=== PATIENT | female | born 1950 | race Two or more races ===

== ENCOUNTER 2023-06-25 13:58 | Inpatient (IN) | payer MEDICARE, OTHER ==
[~2023-06-25] VITALS: Ht 157.5 cm; Wt 56.2 kg
[2023-06-25 14:53] LABS: BASOPHILS % (AUTO) 0.7 % (0.0-2.0); EOSINOPHILS # (AUTO) 0.2 K/uL (0.0-0.7); EOSINOPHILS % (AUTO) 3.7 % (0.0-6.0); HEMATOCRIT 36 % (33-45); LYMPHOCYTES # (AUTO) 1.8 K/uL (0.8-4.8); MEAN CORPUSCULAR HEMOGLOBIN 29 PG (26.0-33.0); MEAN CORPUSCULAR HGB CONC 33 g/dl (31.0-36.0); MEAN CORPUSCULAR VOLUME 88 fL (82-100); MONOCYTES # (AUTO) 0.5 K/uL (0.1-1.30); MONOCYTES % (AUTO) 7.8 % (2.0-12.0); NEUTROPHILS # (AUTO) 3.9 K/uL (1.8-8.9); NEUTROPHILS % (AUTO) 59.8 % (43.0-81.0); PLATELET COUNT (AUTO) 320 K/uL (150-450); RED BLOOD CELL COUNT(AUTO) 4.12 MIL/uL (4.0-5.2); RED CELL DISTRIBUTION WIDTH 14.9 % (11.5-15.0); WHITE BLOOD COUNT (AUTO) 6.5 K/uL (4.3-11.0)
[2023-06-25 15:00] LABS: CALCIUM, SERUM 9.3 mg/dL (8.5-10.1); CARBON DIOXIDE 29 mmol/L (21-32); CHLORIDE 104 mmol/L (98-107); CREATININE 0.8 mg/dL (0.6-1.3); GLUCOSE 87 mg/dL (74-106); POTASSIUM 3.7 mmol/L (3.5-5.1); SODIUM SERUM 138 mmol/L (136-145); UREA NITROGEN, BLOOD 9 mg/dL (7-18)
[2023-06-25 15:06] LABS: ALANINE AMINOTRANSFERASE 21 U/L (12-78); ALCOHOL, BLOOD < 3 mg/dL (0-10); ALKALINE PHOSPHATASE 87 U/L (46-116); ASPARTATE AMINOTRANSFERASE 16 U/L (15-37); BILIRUBIN,DIRECT 0.1 mg/dL (0.0-0.2); BILIRUBIN,TOTAL 0.3 mg/dL (0.2-1.0); SALICYLATE 0.8 mg/dL (2.8-20.0); TOTAL PROTEIN, SERUM 7.4 g/dL (6.4-8.2)
[2023-06-25 15:07] LABS: ACETAMINOPHEN <10 ug/ml (10-30)
[2023-06-25] MEDS ORDERED: SENN-261 PO (15:26)
[2023-06-25] MEDS ORDERED: ACET325T53 PO (15:26)
[2023-06-25] MEDS ORDERED: DOCU100C36 PO (15:26)
[2023-06-25] MEDS ORDERED: CRAN425C2 PO (15:26)
[2023-06-25] MEDS ORDERED: MAGN400O6 PO (15:26)
[2023-06-25] MEDS ORDERED: TRAZ-182 PO (15:26)
[2023-06-25] MEDS ORDERED: MULT-213 PO (15:26)
[2023-06-25 15:37] LABS: APPEARANCE,URINE Clear (CLEAR); BILIRUBIN,URINE Negative (NEGATIVE); BLOOD, URINE Trace-intact Ery/uL (NEGATIVE); COLOR,URINE YELLOW (YELLOW); KETONES,URINE Negative (NEGATIVE); LEUKOCYTE ESTERASE ,URINE Negative (NEGATIVE); NITRITE, URINE Negative (NEGATIVE); PROTEIN,URINE Negative (NEGATIVE); UGLUCOSE Negative (NEGATIVE); UROBILINOGEN,URINE 0.2 EU/dL (0.2)
[2023-06-25 15:55] LABS: AMPHETAMINE, URINE NEGATIVE (NEGATIVE); BARBITURATE, URINE NEGATIVE (NEGATIVE); BENZODIAZEPINE, URINE NEGATIVE (NEGATIVE); CANNABINOID, URINE NEGATIVE (NEGATIVE); COCCAINE, URINE NEGATIVE (NEGATIVE); OPIATE, URINE NEGATIVE (NEGATIVE); PHENCYCLIDINE SCREEN,URINE NEGATIVE (NEGATIVE)
[2023-06-25 16:01] LABS: ADD URINE CULTURE NO; BACTERIA,URINE Few /HPF (None Seen); SQUAMOUS EPITHELIAL CELL,UR Few /HPF (None Seen); WBC,URINE 0-2 /HPF (0-3)
[2023-06-25] MEDS ORDERED: MAGNESIUM HYDROXIDE 30 ML UDC PO PRN ×2 (17:30→21:00)
[2023-06-25] MEDS ORDERED: ACETAMINOPHEN 325 MG TABLET PO PRN (17:30)
[2023-06-25] MEDS ORDERED: MAG HYDROX/AL HYDROX/SIMETH 30 ML UDC PO PRN (21:00)
[2023-06-25] MEDS: BLOOD SUGAR DIAGNOSTIC 1 EACH STRIP IN ONE (21:06)
[2023-06-25] MEDS: SENNOSIDES 8.6 MG TABLET PO SCH (21:06)
[2023-06-25 23:06] VITALS: BP 123/75; TEMP 98; O2SAT 98
[2023-06-26] MEDS: MULTIVIT W/MINERALS 1 TAB TABLET PO SCH (08:14)
[2023-06-26] MEDS: DOCUSATE SODIUM 100 MG CAPSULE PO SCH (08:14)
[2023-06-26] MEDS: OLANZAPINE 10 MG VIAL IM ONE (08:44)
[2023-06-26] MEDS ORDERED: CRANBERRY EXTRACT 425 MG PO SCH (09:00)
[2023-06-26 16:00] VITALS: BP 121/95; TEMP 97.9; O2SAT 97
[2023-06-26 20:00] VITALS: BP_SYST 104; BP_SYST 118; BP_DIAS 66; BP_DIAS 72; TEMP 98.1; TEMP 98.4; O2SAT 97; O2SAT 98
[2023-06-26] MEDS: DIVALPROEX SODIUM 125 MG TABLET.DR PO SCH (20:58)
[2023-06-26] MEDS: ACETAMINOPHEN 325 MG TABLET PO PRN (21:04)
[2023-06-27 08:00] VITALS: BP 121/82; TEMP 98.1; O2SAT 98
[2023-06-27 16:00] VITALS: BP 112/73; TEMP 98.2; O2SAT 98
[2023-06-27] MEDS: MEMANTINE HCL 5 MG TABLET PO SCH (16:50)
[2023-06-27 20:45] VITALS: BP 140/78; TEMP 98.1; O2SAT 96
[2023-06-27] MEDS: ZOLPIDEM TARTRATE 5 MG TABLET PO PRN (20:55)
[2023-06-28 08:00] VITALS: BP 112/64; TEMP 98.1; O2SAT 100
[2023-06-28] MEDS: busPIRone 5 MG TABLET PO SCH (12:20)
[2023-06-28 16:00] VITALS: BP 112/80; TEMP 97.9; O2SAT 98
[2023-06-28 21:03] VITALS: BP 107/67; TEMP 98.1; O2SAT 98
[2023-06-29 08:00] VITALS: BP 109/69; TEMP 98.7; O2SAT 98
[2023-06-29] MEDS: QUETIAPINE FUMARATE 25 MG TABLET PO PRN (12:11)
[2023-06-29 16:00] VITALS: BP 122/79; TEMP 98.7; O2SAT 99
[2023-06-29 21:28] VITALS: BP 102/62; TEMP 98.2; O2SAT 100
[2023-06-30 08:00] VITALS: BP 106/67; TEMP 98.7; O2SAT 98
[2023-06-30 16:00] VITALS: BP 106/65; TEMP 98.1; O2SAT 99
[2023-06-30 16:24] LABS: CALCIUM, SERUM 8.6 mg/dL (8.5-10.1); CREATININE 0.7 mg/dL (0.6-1.3); POTASSIUM 4.6 mmol/L (3.5-5.1)
[2023-06-30 21:01] VITALS: BP 98/70; TEMP 98.2; O2SAT 95
[2023-07-01 08:00] VITALS: BP 100/73; TEMP 98.1; O2SAT 99
[2023-07-01 16:52] VITALS: BP 113/80; TEMP 98.1; O2SAT 97
[2023-07-01 20:00] VITALS: BP 107/67; TEMP 98.1; O2SAT 76
[2023-07-02 07:52] LABS: ALANINE AMINOTRANSFERASE 18 U/L (12-78); ALBUMIN 3.6 g/dL (3.4-5.0); ALKALINE PHOSPHATASE 99 U/L (46-116); ASPARTATE AMINOTRANSFERASE 14 U/L (15-37); BILIRUBIN,TOTAL 0.3 mg/dL (0.2-1.0); CALCIUM, SERUM 8.9 mg/dL (8.5-10.1); CARBON DIOXIDE 28 mmol/L (21-32); CHLORIDE 106 mmol/L (98-107); CREATININE 0.9 mg/dL (0.6-1.3); GLUCOSE 88 mg/dL (74-106); POTASSIUM 4.1 mmol/L (3.5-5.1); SODIUM SERUM 141 mmol/L (136-145); TOTAL PROTEIN, SERUM 7.4 g/dL (6.4-8.2); UREA NITROGEN, BLOOD 14 mg/dL (7-18)
[2023-07-02 08:00] VITALS: BP 133/77; TEMP 98.6; O2SAT 100
[2023-07-02 08:24] LABS: VALPROIC ACID 36 ug/mL (50-100)
[2023-07-02] MEDS: DIVALPROEX SODIUM 250 MG TABLET.DR PO SCH (14:04)
[2023-07-02 16:00] VITALS: BP 121/83; TEMP 98.9; O2SAT 100
[2023-07-02 20:00] VITALS: BP 113/74; TEMP 98.2; O2SAT 97
[2023-07-03 08:00] VITALS: BP 106/66; TEMP 97.6; O2SAT 98
[2023-07-03] MEDS: busPIRone 5 MG TABLET PO SCH (13:01)
[2023-07-03 16:00] VITALS: BP 116/70; TEMP 97.9; O2SAT 100
[2023-07-03 20:00] VITALS: BP 115/71; TEMP 98.1; O2SAT 97
[2023-07-04 08:00] VITALS: BP 117/69; TEMP 98.9; O2SAT 100
[2023-07-04 16:00] VITALS: BP 106/72; TEMP 98; O2SAT 99
[2023-07-04 20:00] VITALS: BP 135/78; TEMP 98.3; O2SAT 99
[2023-07-05 08:00] VITALS: BP 117/78; TEMP 98.1; O2SAT 98
[2023-07-05 16:00] VITALS: BP 108/73; TEMP 98; O2SAT 99
[2023-07-05 21:13] VITALS: BP 109/86; TEMP 98.2; O2SAT 97
[2023-07-06 08:00] VITALS: BP 107/65; TEMP 98.1; O2SAT 97
[2023-07-06 16:00] VITALS: BP 130/75; TEMP 97.8; O2SAT 94
[2023-07-06] MEDS: MEMANTINE HCL 5 MG TABLET PO SCH (16:58)
[2023-07-06 20:51] VITALS: BP 120/55; TEMP 98.2; O2SAT 99
[2023-07-07 08:00] VITALS: BP 112/73; TEMP 97.9; O2SAT 98
[2023-07-07 16:00] VITALS: BP 113/74; TEMP 98.7; O2SAT 100
[2023-07-07 20:38] VITALS: BP 114/55; TEMP 98.6; O2SAT 99
[2023-07-08 08:00] VITALS: BP 115/77; TEMP 97.7; O2SAT 100
== END 2023-07-08 13:30 | DRG 885 ==
LOC: ER 14:27 → GPS 19:56
PROVIDERS: ADMIT Psychiatry & Neurology Psychiatry; ATTEND Nurse Practitioner Family
DX: F39 Unspecified mood [affective] disorder (principal); F02.82 Dementia in other diseases classified elsewhere, unspecified severity, with psychotic disturbance; F02.83 Dementia in other diseases classified elsewhere, unspecified severity, with mood disturbance; F02.84 Dementia in other diseases classified elsewhere, unspecified severity, with anxiety; R45.851 Suicidal ideations; F02.818 Dementia in other diseases classified elsewhere, unspecified severity, with other behavioral disturbance; F29 Unspecified psychosis not due to a substance or known physiological condition; G30.9 Alzheimer's disease, unspecified; F32.A Depression, unspecified; M19.90 Unspecified osteoarthritis, unspecified site; E03.9 Hypothyroidism, unspecified; Z79.899 Other long term (current) drug therapy; Z91.81 History of falling; R13.10 Dysphagia, unspecified; R26.9 Unspecified abnormalities of gait and mobility; Z87.81 Personal history of (healed) traumatic fracture; Z88.7 Allergy status to serum and vaccine; Z73.6 Limitation of activities due to disability; R53.1 Weakness; R27.8 Other lack of coordination
CPT/HCPCS: 36415; 80048-TC; 80053-TC; 80076-TC; 80164-TC; 81001; 85025-TC; 87081-TC; 97112-TC; 97116-TC; 97530-TC; G0480; J3490

== ENCOUNTER 2023-07-24 14:28 | Inpatient (IN) | payer MEDICARE, OTHER ==
[~2023-07-24] VITALS: Ht 167.6 cm; Wt 59.0 kg
[~2023-07-24 14:28] MED LIST: ACET325T53 PO; CRAN425C2 PO; DOCU100C36 PO; MAGN400O6 PO; MULT-213 PO; SENN-261 PO
[2023-07-24] MEDS ORDERED: MAG30ORA PO (14:59)
[2023-07-24] MEDS ORDERED: ACET-73 PO (14:59)
[2023-07-24] MEDS ORDERED: MEMA5TAB PO (14:59)
[2023-07-24] MEDS ORDERED: BUSP5TAB3 PO (15:00)
[2023-07-24] MEDS ORDERED: DIVA-76 PO (15:00)
[2023-07-24 15:42] LABS: BASOPHILS # (AUTO) 0.1 K/uL (0.0-0.2); BASOPHILS % (AUTO) 0.5 % (0.0-2.0); EOSINOPHILS # (AUTO) 0.2 K/uL (0.0-0.7); EOSINOPHILS % (AUTO) 1.6 % (0.0-6.0); HEMATOCRIT 34 % (33-45); HEMOGLOBIN 12.1 g/dL (11.5-14.8); LYMPHOCYTES # (AUTO) 1.7 K/uL (0.8-4.8); LYMPHOCYTES % (AUTO) 18.4 % (20.0-44.0); MEAN CORPUSCULAR HEMOGLOBIN 31 PG (26.0-33.0); MEAN CORPUSCULAR HGB CONC 35 g/dl (31.0-36.0); MEAN CORPUSCULAR VOLUME 88 fL (82-100); MONOCYTES # (AUTO) 0.7 K/uL (0.1-1.30); MONOCYTES % (AUTO) 7.6 % (2.0-12.0); NEUTROPHILS # (AUTO) 6.7 K/uL (1.8-8.9); NEUTROPHILS % (AUTO) 71.9 % (43.0-81.0); PLATELET COUNT (AUTO) 356 K/uL (150-450); RED CELL DISTRIBUTION WIDTH 14.3 % (11.5-15.0); WHITE BLOOD COUNT (AUTO) 9.3 K/uL (4.3-11.0)
[2023-07-24 15:56] LABS: CALCIUM, SERUM 9.1 mg/dL (8.5-10.1); CARBON DIOXIDE 27 mmol/L (21-32); CHLORIDE 98 mmol/L (98-107); CREATININE 0.8 mg/dL (0.6-1.3); GLUCOSE 81 mg/dL (74-106); POTASSIUM 3.7 mmol/L (3.5-5.1); SODIUM SERUM 134 mmol/L (136-145); UREA NITROGEN, BLOOD 9 mg/dL (7-18)
[2023-07-24 16:01] LABS: ALANINE AMINOTRANSFERASE 10 U/L (12-78); ALBUMIN 3.3 g/dL (3.4-5.0); ALKALINE PHOSPHATASE 97 U/L (46-116); ASPARTATE AMINOTRANSFERASE 12 U/L (15-37); BILIRUBIN,DIRECT 0.1 mg/dL (0.0-0.2); BILIRUBIN,TOTAL 0.3 mg/dL (0.2-1.0); TOTAL PROTEIN, SERUM 7.2 g/dL (6.4-8.2)
[2023-07-24 16:09] LABS: ACETAMINOPHEN 0 ug/ml (10-30); ALCOHOL, BLOOD < 3 mg/dL (0-10); SALICYLATE 1.1 mg/dL (2.8-20.0)
[2023-07-24 16:26] LABS: APPEARANCE,URINE SLIGHTLY CLOUDY (CLEAR); BILIRUBIN,URINE 1+ (NEGATIVE); BLOOD, URINE 1+ Ery/uL (NEGATIVE); COLOR,URINE YELLOW (YELLOW); KETONES,URINE 1+ mg/dL (NEGATIVE); LEUKOCYTE ESTERASE ,URINE 1+ (NEGATIVE); NITRITE, URINE POSITIVE (NEGATIVE); PROTEIN,URINE NEGATIVE (NEGATIVE); UGLUCOSE NEGATIVE (NEGATIVE)
[2023-07-24 16:47] LABS: ADD URINE CULTURE YES; BACTERIA,URINE 1+ /HPF (None Seen); MUCUS,URINE Many /LPF (None Seen)
[2023-07-24 17:01] LABS: AMPHETAMINE, URINE NEGATIVE (NEGATIVE); BARBITURATE, URINE NEGATIVE (NEGATIVE); BENZODIAZEPINE, URINE NEGATIVE (NEGATIVE); CANNABINOID, URINE NEGATIVE (NEGATIVE); COCCAINE, URINE NEGATIVE (NEGATIVE); OPIATE, URINE NEGATIVE (NEGATIVE); PHENCYCLIDINE SCREEN,URINE NEGATIVE (NEGATIVE)
[2023-07-24] MEDS ORDERED: CEFTRIAXONE 1GM BAG (ER ONLY) 50 ML IV ONE (17:22)
[2023-07-24] MEDS: CEFTRIAXONE 1GM BAG (ER ONLY) 1 GM/50 ML PIGGYBACK IV ONE (17:37)
[2023-07-24] MEDS ORDERED: MAG HYDROX/AL HYDROX/SIMETH 30 ML UDC PO PRN ×2 (21:00→22:30)
[2023-07-24] MEDS ORDERED: MAGNESIUM HYDROXIDE 30 ML UDC PO PRN ×2 (21:00→22:30)
[2023-07-24] MEDS ORDERED: ACETAMINOPHEN 325 MG TABLET PO PRN ×2 (21:00→22:30)
[2023-07-24] MEDS ORDERED: QUETIAPINE FUMARATE 25 MG TABLET PO PRN (22:30)
[2023-07-24] MEDS: BLOOD SUGAR DIAGNOSTIC 1 EACH STRIP IN ONE (22:46)
[2023-07-24] MEDS: SENNOSIDES 8.6 MG TABLET PO SCH (22:50)
[2023-07-25 00:01] VITALS: BP 116/67; TEMP 98; O2SAT 99
[2023-07-25] MEDS: ZOLPIDEM TARTRATE 5 MG TABLET PO PRN (02:58)
[2023-07-25 08:00] VITALS: BP 104/64; TEMP 98.5; O2SAT 100
[2023-07-25] MEDS: CEPHALEXIN MONOHYDRATE 500 MG CAPSULE PO SCH (08:11)
[2023-07-25] MEDS: MULTIVIT W/MINERALS 1 TAB TABLET PO SCH (08:11)
[2023-07-25] MEDS: DOCUSATE SODIUM 100 MG CAPSULE PO SCH (08:11)
[2023-07-25] MEDS: DIVALPROEX SODIUM 125 MG TABLET.DR PO SCH (12:28)
[2023-07-25 16:00] VITALS: BP 116/73; TEMP 97.6; O2SAT 98
[2023-07-25 20:37] VITALS: BP 126/70; TEMP 97.7; O2SAT 98
[2023-07-25] MEDS: TRAZODONE 50 MG TABLET PO SCH (21:22)
[2023-07-26 07:55] LABS: BASOPHILS # (AUTO) 0.1 K/uL (0.0-0.2); BASOPHILS % (AUTO) 0.8 % (0.0-2.0); EOSINOPHILS # (AUTO) 0.2 K/uL (0.0-0.7); EOSINOPHILS % (AUTO) 3.5 % (0.0-6.0); HEMATOCRIT 35 % (33-45); LYMPHOCYTES # (AUTO) 1.2 K/uL (0.8-4.8); MEAN CORPUSCULAR HEMOGLOBIN 30 PG (26.0-33.0); MEAN CORPUSCULAR HGB CONC 34 g/dl (31.0-36.0); MEAN CORPUSCULAR VOLUME 88 fL (82-100); MONOCYTES # (AUTO) 0.5 K/uL (0.1-1.30); MONOCYTES % (AUTO) 8.1 % (2.0-12.0); NEUTROPHILS # (AUTO) 4.5 K/uL (1.8-8.9); NEUTROPHILS % (AUTO) 68.6 % (43.0-81.0); PLATELET COUNT (AUTO) 351 K/uL (150-450); RED BLOOD CELL COUNT(AUTO) 3.96 MIL/uL (4.0-5.2); RED CELL DISTRIBUTION WIDTH 14.1 % (11.5-15.0); WHITE BLOOD COUNT (AUTO) 6.6 K/uL (4.3-11.0)
[2023-07-26 07:58] LABS: CALCIUM, SERUM 9.5 mg/dL (8.5-10.1); CREATININE 0.7 mg/dL (0.6-1.3)
[2023-07-26 08:00] VITALS: BP 134/70; TEMP 98; O2SAT 97
[2023-07-26 16:00] VITALS: BP 96/70; TEMP 97.9; O2SAT 99
[2023-07-26 20:21] VITALS: BP 113/75; TEMP 97.9; O2SAT 97
[2023-07-27 08:00] VITALS: BP 101/64; TEMP 97.8; O2SAT 96
[2023-07-27 16:03] VITALS: BP 90/54; TEMP 97.8; O2SAT 99
[2023-07-27 20:39] VITALS: BP_SYST 103; TEMP 97.7; O2SAT 98
[2023-07-28 08:00] VITALS: BP 98/56; TEMP 98.1; O2SAT 100
[2023-07-28 13:08] LABS: CALCIUM, SERUM 9.5 mg/dL (8.5-10.1); CARBON DIOXIDE 30 mmol/L (21-32); CHLORIDE 95 mmol/L (98-107); CREATININE 0.7 mg/dL (0.6-1.3); GLUCOSE 84 mg/dL (74-106); SODIUM SERUM 131 mmol/L (136-145); UREA NITROGEN, BLOOD 7 mg/dL (7-18)
[2023-07-28 16:00] VITALS: BP 100/65; TEMP 97.9; O2SAT 98
[2023-07-28 20:00] VITALS: BP 103/69; TEMP 97.5; O2SAT 96
[2023-07-28 20:55] VITALS: BP 103/69; TEMP 97.5; O2SAT 96
[2023-07-29 08:00] VITALS: BP 95/71; TEMP 98; O2SAT 98
[2023-07-29 10:18] LABS: CALCIUM, SERUM 8.8 mg/dL (8.5-10.1); CARBON DIOXIDE 29 mmol/L (21-32); CHLORIDE 96 mmol/L (98-107); CREATININE 0.8 mg/dL (0.6-1.3); GLUCOSE 98 mg/dL (74-106); POTASSIUM 3.3 mmol/L (3.5-5.1); SODIUM SERUM 131 mmol/L (136-145); UREA NITROGEN, BLOOD 6 mg/dL (7-18)
[2023-07-29 16:00] VITALS: BP 119/71; TEMP 97.9; O2SAT 99
[2023-07-29] MEDS: OLANZAPINE 2.5 MG TABLET PO SCH (16:23)
[2023-07-29 20:00] VITALS: BP 124/70; TEMP 98.1; O2SAT 97
[2023-07-30 08:00] VITALS: BP 103/56; TEMP 98.1; O2SAT 100
[2023-07-30 16:00] VITALS: BP 104/61; TEMP 97.3; O2SAT 100
[2023-07-30 20:00] VITALS: BP 109/68; TEMP 98.1; O2SAT 97
[2023-07-31 07:00] LABS: BASOPHILS # (AUTO) 0.1 K/uL (0.0-0.2); BASOPHILS % (AUTO) 0.8 % (0.0-2.0); EOSINOPHILS # (AUTO) 0.3 K/uL (0.0-0.7); EOSINOPHILS % (AUTO) 4.8 % (0.0-6.0); HEMATOCRIT 37 % (33-45); HEMOGLOBIN 12.7 g/dL (11.5-14.8); LYMPHOCYTES # (AUTO) 2.1 K/uL (0.8-4.8); LYMPHOCYTES % (AUTO) 28.9 % (20.0-44.0); MEAN CORPUSCULAR HEMOGLOBIN 31 PG (26.0-33.0); MEAN CORPUSCULAR HGB CONC 35 g/dl (31.0-36.0); MEAN CORPUSCULAR VOLUME 88 fL (82-100); MONOCYTES # (AUTO) 0.5 K/uL (0.1-1.30); MONOCYTES % (AUTO) 6.7 % (2.0-12.0); NEUTROPHILS # (AUTO) 4.3 K/uL (1.8-8.9); NEUTROPHILS % (AUTO) 58.8 % (43.0-81.0); PLATELET COUNT (AUTO) 371 K/uL (150-450); RED BLOOD CELL COUNT(AUTO) 4.16 MIL/uL (4.0-5.2); RED CELL DISTRIBUTION WIDTH 14.2 % (11.5-15.0); WHITE BLOOD COUNT (AUTO) 7.2 K/uL (4.3-11.0)
[2023-07-31 07:08] LABS: CALCIUM, SERUM 9.2 mg/dL (8.5-10.1); CREATININE 0.8 mg/dL (0.6-1.3); MAGNESIUM 2.4 mg/dL (1.8-2.4); POTASSIUM 4.1 mmol/L (3.5-5.1)
[2023-07-31 08:00] VITALS: BP 92/56; TEMP 97.6; O2SAT 98
[2023-07-31 16:00] VITALS: BP 93/65; TEMP 97.9; O2SAT 98
[2023-07-31] MEDS: OLANZAPINE 2.5 MG TABLET PO SCH (17:00)
[2023-07-31 20:00] VITALS: BP 129/68; TEMP 98.2; O2SAT 97
[2023-08-01 08:00] VITALS: BP 97/57; TEMP 97.7; O2SAT 100
[2023-08-01 16:00] VITALS: BP 101/64; TEMP 98.6; O2SAT 100
[2023-08-01 20:14] VITALS: BP 97/56; TEMP 97.5; O2SAT 98
[2023-08-02] MEDS: LEVOTHYROXINE SODIUM 100 MCG TABLET PO SCH (07:22)
[2023-08-02 08:00] VITALS: BP 102/66; TEMP 97.9; O2SAT 100
[2023-08-02 16:00] VITALS: BP 121/75; TEMP 97.7; O2SAT 98
[2023-08-02 20:36] VITALS: BP 106/58; TEMP 97.9; O2SAT 96
[2023-08-03 07:31] LABS: CALCIUM, SERUM 9.7 mg/dL (8.5-10.1); CREATININE 0.8 mg/dL (0.6-1.3); POTASSIUM 3.9 mmol/L (3.5-5.1)
[2023-08-03 08:00] VITALS: BP 101/64; TEMP 97.8; O2SAT 100
[2023-08-03 16:03] VITALS: BP 93/63; TEMP 97.9; O2SAT 100
[2023-08-03] MEDS: DIVALPROEX SODIUM 125 MG TABLET.DR PO SCH (16:35)
[2023-08-03 20:12] VITALS: BP 101/52; TEMP 97.4; O2SAT 100
[2023-08-04 08:00] VITALS: BP 103/59; TEMP 98.7; O2SAT 98
[2023-08-04 16:00] VITALS: BP 100/53; TEMP 98.1; O2SAT 97
[2023-08-04 20:10] VITALS: BP 99/60; TEMP 98.2; O2SAT 97
[2023-08-05 08:00] VITALS: BP 104/66; TEMP 98.1; O2SAT 96
== END 2023-08-05 13:40 | DRG 885 ==
LOC: ER 14:30 → GPS 21:19
PROVIDERS: ADMIT Psychiatry & Neurology Psychiatry; ATTEND Nurse Practitioner Acute Care
DX: F39 Unspecified mood [affective] disorder (principal); F01.53 Vascular dementia, unspecified severity, with mood disturbance; G93.41 Metabolic encephalopathy; F01.54 Vascular dementia, unspecified severity, with anxiety; F02.82 Dementia in other diseases classified elsewhere, unspecified severity, with psychotic disturbance; F01.52 Vascular dementia, unspecified severity, with psychotic disturbance; F02.84 Dementia in other diseases classified elsewhere, unspecified severity, with anxiety; F02.83 Dementia in other diseases classified elsewhere, unspecified severity, with mood disturbance; N39.0 Urinary tract infection, site not specified; E87.1 Hypo-osmolality and hyponatremia; R45.851 Suicidal ideations; F29 Unspecified psychosis not due to a substance or known physiological condition; G30.9 Alzheimer's disease, unspecified; Z66 Do not resuscitate; Z20.822 Contact with and (suspected) exposure to COVID-19; B96.89 Other specified bacterial agents as the cause of diseases classified elsewhere; R13.10 Dysphagia, unspecified; R26.2 Difficulty in walking, not elsewhere classified; M19.90 Unspecified osteoarthritis, unspecified site; Z87.81 Personal history of (healed) traumatic fracture; F32.9 Major depressive disorder, single episode, unspecified; E87.6 Hypokalemia; T42.6X5A Adverse effect of other antiepileptic and sedative-hypnotic drugs, initial encounter; Y92.129 Unspecified place in nursing home as the place of occurrence of the external cause; E03.9 Hypothyroidism, unspecified; R62.7 Adult failure to thrive; Z88.7 Allergy status to serum and vaccine; Z79.899 Other long term (current) drug therapy
CPT/HCPCS: 36415; 80048-TC; 80061-TC; 80076-TC; 81001; 82962-TC; 83735-TC; 84439-TC; 84443-TC; 85025-TC; 87081-TC; 87086-TC; 97112-TC; 97116-TC; 97530-TC; G0480; J0696

== ENCOUNTER 2023-08-24 12:37 | Inpatient (IN) | payer MEDICARE, OTHER ==
[~2023-08-24] VITALS: Ht 167.6 cm; Wt 60.8 kg
[~2023-08-24 12:37] MED LIST changes: +ACET-73 PO; +BUSP5TAB3 PO; -CRAN425C2 PO; +DIVA-76 PO; +MAG30ORA PO; +MEMA5TAB PO
[2023-08-24 13:22] LABS: CALCIUM, SERUM 9.4 mg/dL (8.5-10.1); CARBON DIOXIDE 29 mmol/L (21-32); CHLORIDE 99 mmol/L (98-107); CREATININE 0.7 mg/dL (0.6-1.3); GLUCOSE 82 mg/dL (74-106); POTASSIUM 4.2 mmol/L (3.5-5.1); SODIUM SERUM 137 mmol/L (136-145); UREA NITROGEN, BLOOD 11 mg/dL (7-18)
[2023-08-24 13:24] LABS: BASOPHILS # (AUTO) 0.1 K/uL (0.0-0.2); BASOPHILS % (AUTO) 0.9 % (0.0-2.0); EOSINOPHILS # (AUTO) 0.4 K/uL (0.0-0.7); EOSINOPHILS % (AUTO) 4.9 % (0.0-6.0); HEMATOCRIT 35 % (33-45); HEMOGLOBIN 11.5 g/dL (11.5-14.8); LYMPHOCYTES # (AUTO) 1.7 K/uL (0.8-4.8); LYMPHOCYTES % (AUTO) 22.3 % (20.0-44.0); MEAN CORPUSCULAR HEMOGLOBIN 30 PG (26.0-33.0); MEAN CORPUSCULAR HGB CONC 34 g/dl (31.0-36.0); MEAN CORPUSCULAR VOLUME 89 fL (82-100); MONOCYTES # (AUTO) 0.6 K/uL (0.1-1.30); NEUTROPHILS % (AUTO) 63.9 % (43.0-81.0); PLATELET COUNT (AUTO) 288 K/uL (150-450); RED BLOOD CELL COUNT(AUTO) 3.87 MIL/uL (4.0-5.2); RED CELL DISTRIBUTION WIDTH 14.4 % (11.5-15.0); WHITE BLOOD COUNT (AUTO) 7.8 K/uL (4.3-11.0)
[2023-08-24 13:27] LABS: ALANINE AMINOTRANSFERASE 12 U/L (12-78); ALBUMIN 3.2 g/dL (3.4-5.0); ALCOHOL, BLOOD < 3 mg/dL (0-10); ALKALINE PHOSPHATASE 91 U/L (46-116); ASPARTATE AMINOTRANSFERASE < 5 U/L (15-37); BILIRUBIN,DIRECT 0.1 mg/dL (0.0-0.2); BILIRUBIN,TOTAL 0.3 mg/dL (0.2-1.0)
[2023-08-24 13:29] LABS: APPEARANCE,URINE Clear (CLEAR); BILIRUBIN,URINE Negative (NEGATIVE); BLOOD, URINE Negative Ery/uL (NEGATIVE); COLOR,URINE YELLOW (YELLOW); KETONES,URINE Trace mg/dL (NEGATIVE); LEUKOCYTE ESTERASE ,URINE Small (NEGATIVE); NITRITE, URINE Negative (NEGATIVE); PROTEIN,URINE Negative (NEGATIVE); UGLUCOSE Negative (NEGATIVE); UROBILINOGEN,URINE 0.2 EU/dL (0.2)
[2023-08-24 13:29] LABS: ACETAMINOPHEN <10 ug/ml (10-30)
[2023-08-24] MEDS ORDERED: NA P133E RC (13:32)
[2023-08-24] MEDS ORDERED: LEVO100T PO (13:32)
[2023-08-24] MEDS ORDERED: OLAN2.5T3 PO (13:32)
[2023-08-24] MEDS ORDERED: TRAZ-182 PO (13:32)
[2023-08-24 13:40] LABS: AMPHETAMINE, URINE NEGATIVE (NEGATIVE); BARBITURATE, URINE NEGATIVE (NEGATIVE); BENZODIAZEPINE, URINE NEGATIVE (NEGATIVE); CANNABINOID, URINE NEGATIVE (NEGATIVE); COCCAINE, URINE NEGATIVE (NEGATIVE); OPIATE, URINE NEGATIVE (NEGATIVE); PHENCYCLIDINE SCREEN,URINE NEGATIVE (NEGATIVE)
[2023-08-24 13:44] LABS: ADD URINE CULTURE YES; BACTERIA,URINE Few /HPF (None Seen); SQUAMOUS EPITHELIAL CELL,UR Few /HPF (None Seen); WBC,URINE 0-2 /HPF (0-3)
[2023-08-24] MEDS ORDERED: ZOLPIDEM TARTRATE 5 MG TABLET PO PRN (18:00)
[2023-08-24] MEDS ORDERED: QUETIAPINE FUMARATE 25 MG TABLET PO PRN (18:00)
[2023-08-24] MEDS ORDERED: MAG HYDROX/AL HYDROX/SIMETH 30 ML UDC PO PRN (18:00)
[2023-08-24] MEDS ORDERED: MAGNESIUM HYDROXIDE 30 ML UDC PO PRN (18:00)
[2023-08-24] MEDS: BLOOD SUGAR DIAGNOSTIC 1 EACH STRIP IN ONE (18:15)
[2023-08-24 18:31] VITALS: BP 121/69; TEMP 98.7; O2SAT 99
[2023-08-24 20:10] VITALS: BP 107/70; TEMP 98.3; O2SAT 96
[2023-08-25 08:00] VITALS: BP 110/70; TEMP 97.9; O2SAT 98
[2023-08-25 11:37] LABS: ALBUMIN 3.4 g/dL (3.4-5.0); BILIRUBIN,TOTAL 0.3 mg/dL (0.2-1.0); CALCIUM, SERUM 9.8 mg/dL (8.5-10.1); CREATININE 0.9 mg/dL (0.6-1.3); POTASSIUM 4.5 mmol/L (3.5-5.1); TOTAL PROTEIN, SERUM 7.4 g/dL (6.4-8.2)
[2023-08-25 11:47] LABS: THYROID STIMULATING HORMONE 2.94 uIU/mL (0.358-3.74)
[2023-08-25 16:00] VITALS: BP 107/60; TEMP 97.7; O2SAT 100
[2023-08-25 18:33] LABS: CREATININE 0.9 mg/dL (0.6-1.3)
[2023-08-25 20:00] VITALS: BP 97/52; TEMP 97.9; O2SAT 98
[2023-08-25] MEDS: LITHIUM CARBONATE 150 MG CAPSULE PO SCH (20:55)
[2023-08-26 08:00] VITALS: BP 108/66; TEMP 98.6; O2SAT 99
[2023-08-26] MEDS: ESCITALOPRAM OXALATE (10 MG) 10 MG TABLET PO SCH (08:26)
[2023-08-26 16:00] VITALS: BP_SYST 112; BP_SYST 151; BP_DIAS 61; BP_DIAS 84; TEMP 97.6; TEMP 98; O2SAT 97; O2SAT 99
[2023-08-26 20:00] VITALS: BP 109/78; TEMP 98.2; O2SAT 98
[2023-08-26] MEDS: OLANZAPINE 2.5 MG TABLET PO SCH (20:57)
[2023-08-26] MEDS: SENNOSIDES 8.6 MG TABLET PO SCH (21:03)
[2023-08-27 08:00] VITALS: BP 102/72; TEMP 97.8; O2SAT 95
[2023-08-27] MEDS: DOCUSATE SODIUM 100 MG CAPSULE PO SCH (08:33)
[2023-08-27] MEDS: MULTIVIT W/MINERALS 1 TAB TABLET PO SCH (08:33)
[2023-08-27] MEDS: LEVOTHYROXINE SODIUM 100 MCG TABLET PO SCH (08:33)
[2023-08-27] MEDS: HYDROCORTISONE 1% CREAM 28.35 GM TUBE TP SCH (12:57)
[2023-08-27 16:00] VITALS: BP 103/66; TEMP 97.9; O2SAT 98
[2023-08-27 20:00] VITALS: BP 115/69; TEMP 97.6; O2SAT 97
[2023-08-28 08:00] VITALS: BP 114/69; TEMP 97.7; O2SAT 97
[2023-08-28 16:00] VITALS: BP 114/69; TEMP 97.9; O2SAT 98
[2023-08-28 21:12] VITALS: BP 136/69; TEMP 97.9; O2SAT 98
[2023-08-28] MEDS: OLANZAPINE 2.5 MG TABLET PO SCH (21:13)
[2023-08-29 08:00] VITALS: BP 105/67; TEMP 97.7; O2SAT 97
[2023-08-29] MEDS: OLANZAPINE 5 MG TABLET PO SCH (09:02)
[2023-08-29 16:00] VITALS: BP 100/64; TEMP 98.4; O2SAT 100
[2023-08-29] MEDS: LITHIUM CARBONATE 150 MG CAPSULE PO SCH (21:16)
[2023-08-30 08:00] VITALS: BP 109/51; TEMP 97.9; O2SAT 99
[2023-08-30] MEDS: LITHIUM CARBONATE 150 MG CAPSULE PO SCH (08:59)
[2023-08-30 16:00] VITALS: BP 108/62; TEMP 98.1; O2SAT 100
[2023-08-30 20:32] VITALS: BP 102/57; TEMP 98.6; O2SAT 98
[2023-08-31 08:00] VITALS: BP 99/83; TEMP 97.8; O2SAT 99
[2023-08-31 16:05] VITALS: BP 105/83; TEMP 98.3; O2SAT 98
[2023-08-31 20:27] VITALS: BP 111/63; TEMP 98; O2SAT 97
[2023-09-01 08:00] VITALS: BP 128/74; TEMP 98.7; O2SAT 98
[2023-09-01] MEDS: ESCITALOPRAM OXALATE (10 MG) 10 MG TABLET PO SCH (08:14)
[2023-09-01 16:00] VITALS: BP 118/73; TEMP 98.6; O2SAT 99
[2023-09-01] MEDS: ACETAMINOPHEN 325 MG TABLET PO PRN (19:48)
[2023-09-01 20:28] VITALS: BP 101/77; TEMP 98.3; O2SAT 100
[2023-09-02 08:00] VITALS: BP 120/67; TEMP 98; O2SAT 98
[2023-09-02 16:00] VITALS: BP 97/66; TEMP 98; O2SAT 100
[2023-09-02 20:00] VITALS: BP 115/67; TEMP 98.1; O2SAT 97
[2023-09-03 09:12] VITALS: BP 106/58; TEMP 97.7; O2SAT 98
[2023-09-03 16:00] VITALS: BP 115/75; TEMP 97.9; O2SAT 95
[2023-09-03 20:00] VITALS: BP 110/69; TEMP 98.1; O2SAT 98
[2023-09-04 08:00] VITALS: BP 105/64; TEMP 97.7; O2SAT 98
[2023-09-04] MEDS: OLANZAPINE 5 MG TABLET PO SCH (08:26)
[2023-09-04 16:00] VITALS: BP 101/60; TEMP 98; O2SAT 98
[2023-09-04 20:00] VITALS: BP 108/67; TEMP 97.9; O2SAT 98
[2023-09-05 08:00] VITALS: BP 108/66; TEMP 98; O2SAT 99
[2023-09-05 16:12] VITALS: BP 92/58; TEMP 97.9; O2SAT 99
[2023-09-05 21:30] VITALS: BP 102/68; TEMP 98.2; O2SAT 99
[2023-09-06 08:00] VITALS: BP 117/60; TEMP 98.1; O2SAT 97
[2023-09-06 16:00] VITALS: BP 101/71; TEMP 98.6; O2SAT 98
[2023-09-06] MEDS: MEMANTINE HCL 5 MG TABLET PO SCH (17:02)
[2023-09-06 21:03] VITALS: BP 106/52; TEMP 98.4; O2SAT 96
[2023-09-07 08:00] VITALS: BP 107/70; TEMP 98.1; O2SAT 96
[2023-09-07 16:00] VITALS: BP 100/64; TEMP 98.4; O2SAT 100
[2023-09-07 20:50] VITALS: BP 103/60; TEMP 97.9; O2SAT 98
[2023-09-07] MEDS: DONEPEZIL 5 MG TABLET PO SCH (21:24)
[2023-09-08 08:00] VITALS: BP 100/61; TEMP 97.7; O2SAT 98
[2023-09-08 16:00] VITALS: BP 100/56; TEMP 98.1; O2SAT 98
[2023-09-08 20:45] VITALS: BP 107/71; TEMP 98.3; O2SAT 97
[2023-09-09 08:00] VITALS: BP 96/59; TEMP 97.7; O2SAT 98
[2023-09-09 16:00] VITALS: BP 100/60; TEMP 98; O2SAT 96
[2023-09-09 20:00] VITALS: BP 93/47; TEMP 98.1; O2SAT 98
[2023-09-10 08:00] VITALS: BP 92/68; TEMP 97.8; O2SAT 97
[2023-09-10 16:00] VITALS: BP 100/65; TEMP 98; O2SAT 98
== END 2023-09-10 17:30 | DRG 885 ==
LOC: ER 12:40 → GPS 16:22
PROVIDERS: ADMIT Psychiatry & Neurology Psychiatry; ATTEND Internal Medicine
DX: F29 Unspecified psychosis not due to a substance or known physiological condition (principal); F01.53 Vascular dementia, unspecified severity, with mood disturbance; G93.41 Metabolic encephalopathy; E44.1 Mild protein-calorie malnutrition; F02.83 Dementia in other diseases classified elsewhere, unspecified severity, with mood disturbance; F02.82 Dementia in other diseases classified elsewhere, unspecified severity, with psychotic disturbance; F01.52 Vascular dementia, unspecified severity, with psychotic disturbance; R45.851 Suicidal ideations; F02.84 Dementia in other diseases classified elsewhere, unspecified severity, with anxiety; G30.9 Alzheimer's disease, unspecified; Z87.891 Personal history of nicotine dependence; Z88.7 Allergy status to serum and vaccine; Z20.822 Contact with and (suspected) exposure to COVID-19; Z79.899 Other long term (current) drug therapy; M19.90 Unspecified osteoarthritis, unspecified site; F32.A Depression, unspecified; E88.09 Other disorders of plasma-protein metabolism, not elsewhere classified; E03.9 Hypothyroidism, unspecified; K59.00 Constipation, unspecified; R13.10 Dysphagia, unspecified; R26.2 Difficulty in walking, not elsewhere classified; Z91.81 History of falling; Z87.81 Personal history of (healed) traumatic fracture; R62.7 Adult failure to thrive; Z79.890 Hormone replacement therapy; F39 Unspecified mood [affective] disorder
CPT/HCPCS: 36415; 80048-TC; 80053-TC; 80061-TC; 80076-TC; 80178-TC; 81001; 82565-TC; 82962-TC; 84439-TC; 84443-TC; 85025-TC; 87081-TC; G0480